=== PATIENT | female | born 1985 | race American Indian/Alaskan Native ===

== ENCOUNTER 2018-09-05 09:33 | Emergency (ER) | payer OTHER ==
--- NOTE | 2018-09-05 10:42 | XRay Report ---
BILATERAL KNEES, 3 VIEWS History: Trauma. Findings: Normal bone mineralization. No acute osseous findings or joint pathology is identified. The soft tissues are unremarkable. Impression: Unremarkable bilateral knees.
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
[2018-09-05] MEDS ORDERED: IBUPROFEN PO ONE (11:25)
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
[2018-09-06 18:41] VITALS: BP 112/76
== END 2018-09-05 11:59 | disposition home or self-care (01) ==
LOC: ED 09:33
DX: M25.561 Pain in right knee (principal); M25.562 Pain in left knee; V89.2XXA Person injured in unspecified motor-vehicle accident, traffic, initial encounter; Y93.89 Activity, other specified; Y92.410 Unspecified street and highway as the place of occurrence of the external cause; Y99.8 Other external cause status
CPT/HCPCS: 99283